=== PATIENT | female | born 1985 | race Asian ===

== ENCOUNTER 2024-01-03 03:04 | Inpatient (IN) ==
[2024-01-03] MEDS: Lactated Ringers 1000 ml BAG 1,000 ML IV ONE (03:49)
[2024-01-03] MEDS: Morphine 4 MG/ML VIAL (1 ml) IV ONE (04:01)
[2024-01-03 04:05] LABS: ABS Lymphocytes 1.2 10^3/uL (1.0-4.8); ABS Monocytes 0.5 10^3/uL (0.0-0.9); ABS Neutrophils 14.7 10^3/uL (1.5-7.6); ABS Nucleated RBC 0.01 10^3/ul; Hematocrit 14.7 % (35-45); Lymphocyte % 7.3 %; Mean Corpuscular Hemoglobin 32.2 pg (27-33); Mean Corpuscular Hgb Conc 34.2 g/dL (31-36); Mean Corpuscular Volume 94.3 fL (80-97); Mean Platelet Volume 9.6 fL (7.5-11.2); Nucleated Red Blood Cells % 0.1 %/100WBC (0.0-0.8); Platelet Count 177 10^3/uL (150-450); Red Blood Count 1.56 10^6/uL (3.63-4.92); Red Cell Distribution Width 13.5 % (12-17); White Blood Count 16.4 10^3/uL (3.8-11.8)
[2024-01-03 04:18] LABS: Albumin 3.3 g/dL (3.2-5.2); Albumin/Globulin Ratio 2.1 (1-3); Calcium 6.8 mg/dL (8.6-10.3); Creatinine, Serum 0.66 mg/dL (0.51-0.95); Globulin 1.6 g/dL (2-4); Potassium 4.4 mmol/L (3.5-5.0); Total Bilirubin 0.6 mg/dL (0.2-1.0); Total Protein 4.9 g/dL (6.4-8.9); eGFR CKD-EPI 114.4 (>60)
[2024-01-03] MEDS: Iohexol 350 (CONTRAST) 500 ML MDV IV ONE (04:40)
[2024-01-03] MEDS ORDERED: ceFAZolin 2 GM in NS PREMIX 2 GM/100 ML BAG IVPB ONE (06:06)
[2024-01-03] MEDS: ceFAZolin 2 GM/50 ML BAG IV ONE (07:11)
[2024-01-03] MEDS ORDERED: Ondansetron 4 mg VIAL 2 MG/ML 2 ml VIAL IV PRN ×3 (07:24→12:35)
[2024-01-03] MEDS ORDERED: Naloxone 0.4 mg VIAL 0.4 mg/ml 1 ml VIAL IV PRN ×2 (07:24→12:35)
[2024-01-03] MEDS ORDERED: fentaNYL 100 mcg/2 ml 50 MCG/ML VIAL IV PRN ×2 (07:24→12:35)
[2024-01-03] MEDS ORDERED: Rocuronium 50 mg VIAL 10 mg/ml 5 ml VIAL (50 mg) ONE ×2 (07:34→09:11)
[2024-01-03 07:35] LABS: Urine Appearance Clear; Urine Bilirubin Negative (Negative); Urine Blood Negative (Negative); Urine Color Light-Yellow; Urine Glucose Negative (Negative); Urine Ketones Negative (Negative); Urine Nitrite Negative (Negative); Urine Protein Negative (Negative); Urine Specific Gravity >1.050 (1.002-1.030); Urine Urobilinogen Negative (Negative)
[2024-01-03] MEDS ORDERED: Metoclopramide 5 MG/ML VIAL (10 mg) ONE (07:38)
[2024-01-03] MEDS ORDERED: Ondansetron 4 mg VIAL 2 MG/ML 2 ml VIAL ONE (07:38)
[2024-01-03] MEDS ORDERED: Propofol 10 MG/ML 20 ML BTL ONE (07:38)
[2024-01-03] MEDS ORDERED: Dexamethasone IV 4 MG/ML VIAL 1 ml VIAL ONE (07:38)
[2024-01-03 07:48] LABS: INR 1.38 (0.83-1.13)
[2024-01-03] MEDS ORDERED: Bupivacaine 0.25% SDV 30 ML ONE (07:51)
[2024-01-03] MEDS ORDERED: Tranexamic Acid 1 GM/100ML BAG 2,000 MG/200 ML BAG IV ONE (08:00)
[2024-01-03] MEDS ORDERED: fentaNYL 100 mcg/2 ml 50 MCG/ML VIAL ONE (08:22)
[2024-01-03] MEDS ORDERED: Midazolam 2 mg/2 ml VIAL 1 mg/ml 2 ml VIAL (2 mg) ONE ×2 (08:22→09:18)
[2024-01-03] MEDS ORDERED: Bupivacaine 0.5% SDV PF 30ML VIAL ONE (09:00)
[2024-01-03] MEDS ORDERED: ceFAZolin VIAL VIAL ONE (09:05)
[2024-01-03] MEDS ORDERED: oxyCODONE/Acetamin 5/325 mg TAB PO PRN ×2 (10:47)
[2024-01-03 12:05] LABS: Hematocrit 29.7 % (35-45); Hemoglobin 10.4 g/dL (11.5-14.3); Mean Corpuscular Hemoglobin 31.6 pg (27-33); Mean Corpuscular Hgb Conc 34.9 g/dL (31-36); Mean Corpuscular Volume 90.5 fL (80-97); Red Blood Count 3.28 10^6/uL (3.63-4.92); White Blood Count 13.2 10^3/uL (3.8-11.8)
[2024-01-03 12:18] LABS: Activated Partial Thrombo Time 19.3 seconds (26.0-38.0); INR 1.14 (0.83-1.13)
[2024-01-03 12:28] LABS: ABS Monocytes 0.4 10^3/uL (0.0-0.9); ABS Neutrophils 11.8 10^3/uL (1.5-7.6); Lymphocyte % 7.8 %; Mean Platelet Volume 9.8 fL (7.5-11.2); Platelet Count 91 10^3/uL (150-450)
[2024-01-03] MEDS: Lactated Ringers 1000 ml BAG 1,000 ML IV SCH (13:11)
[2024-01-03 14:55] LABS: ABS Monocytes 0.3 10^3/uL (0.0-0.9); ABS Neutrophils 11.5 10^3/uL (1.5-7.6); Hematocrit 29.3 % (35-45); Lymphocyte % 7.9 %; Mean Corpuscular Hemoglobin 30.7 pg (27-33); Mean Corpuscular Volume 90.2 fL (80-97); Mean Platelet Volume 10.1 fL (7.5-11.2); Platelet Count 106 10^3/uL (150-450); Red Blood Count 3.25 10^6/uL (3.63-4.92); Red Cell Distribution Width 14.3 % (12-17); White Blood Count 12.9 10^3/uL (3.8-11.8)
[2024-01-03 14:56] LABS: Urine Appearance Clear; Urine Bilirubin Negative (Negative); Urine Blood Negative (Negative); Urine Color Colorless; Urine Glucose Negative (Negative); Urine Ketones Negative (Negative); Urine Nitrite Negative (Negative); Urine Protein Negative (Negative); Urine Specific Gravity 1.012 (1.002-1.030); Urine Urobilinogen Negative (Negative); Urine pH 6.5 (5.0-8.0)
[2024-01-03 15:07] LABS: Calcium 6.6 mg/dL (8.6-10.3); Creatinine, Serum 0.6 mg/dL (0.51-0.95); Potassium 3.6 mmol/L (3.5-5.0)
[2024-01-03 22:16] LABS: ABS Lymphocytes 1.8 10^3/uL (1.0-4.8); ABS Monocytes 0.9 10^3/uL (0.0-0.9); ABS Neutrophils 10.1 10^3/uL (1.5-7.6); Hematocrit 28.1 % (35-45); Hemoglobin 9.7 g/dL (11.5-14.3); Lymphocyte % 14.2 %; Mean Corpuscular Hemoglobin 31.2 pg (27-33); Mean Corpuscular Hgb Conc 34.7 g/dL (31-36); Mean Platelet Volume 9.8 fL (7.5-11.2); Platelet Count 109 10^3/uL (150-450); Red Blood Count 3.12 10^6/uL (3.63-4.92); Red Cell Distribution Width 14.7 % (12-17); White Blood Count 12.9 10^3/uL (3.8-11.8)
[2024-01-03 22:38] LABS: INR 1.18 (0.83-1.13)
[2024-01-04 04:28] LABS: ABS Lymphocytes 2.3 10^3/uL (1.0-4.8); ABS Monocytes 0.6 10^3/uL (0.0-0.9); ABS Neutrophils 6.9 10^3/uL (1.5-7.6); ABS Nucleated RBC 0.02 10^3/ul; Eosinophil % 0.1 %; Hemoglobin 9.4 g/dL (11.5-14.3); Lymphocyte % 23.4 %; Mean Corpuscular Hemoglobin 31.8 pg (27-33); Mean Corpuscular Volume 90.7 fL (80-97); Mean Platelet Volume 9.7 fL (7.5-11.2); Nucleated Red Blood Cells % 0.2 %/100WBC (0.0-0.8); Platelet Count 108 10^3/uL (150-450); Red Blood Count 2.97 10^6/uL (3.63-4.92); Red Cell Distribution Width 15.1 % (12-17); White Blood Count 9.9 10^3/uL (3.8-11.8)
[2024-01-04 04:47] LABS: Calcium 6.8 mg/dL (8.6-10.3); Creatinine, Serum 0.6 mg/dL (0.51-0.95); Magnesium 1.9 mg/dL (1.9-2.7); Phosphorus 1.4 mg/dL (2.5-5.0); Potassium 3.5 mmol/L (3.5-5.0)
[2024-01-04] MEDS: Potassium Phosphate IV 20 MMOL in NS 0.9% 250 ml 250 ML IVPB ONE (10:42)
[2024-01-04] MEDS: Potassium & Sodium Phos 250 mg = 1 PACKET PO SCH (14:05)
[2024-01-05 06:28] VITALS: BP 105/73
== END 2024-01-05 11:10 | disposition home or self-care (01) | DRG 749 ==
LOC: ED 03:04 → EDHOLD 13:21 → ICU 13:24 → SSU 01-04 11:09
PROVIDERS: ADMIT Student in an Organized Health Care Education/Training Program; ATTEND Student in an Organized Health Care Education/Training Program